=== PATIENT | male | born 1975 | race Caucasian/White ===

== ENCOUNTER 2020-10-15 10:28 | Outpatient (CLI) | payer OTHER, SELFPAY ==
--- NOTE | ~2020-10-15 | US_ITS ---
US abdomen complete DATE: 10/15/2020 11:00 INDICATION: Left upper quadrant abdominal pain TECHNIQUE: Real-time imaging and Doppler analysis of the abdominal structures COMPARISON: None FINDINGS: Examination is limited due to body habitus. The pancreas is obscured by bowel gas. The abdo kim aorta and inferior vena cava likewise are obscured by bowel gas. There is hepatic steatosis. Normal hepatopedal portal venous flow direction. The gallbladder is contracted and not optimally evaluated. Negative sonographic Cordon's sign. The co mmon bile duct measures 6.1 mm, borderline. Left kidney measures 11.7 cm length, right kidney 12.2 cm length. No renal mass lesion or hydronephro sis is detected. Splenic size is normal. IMPRESSION: Limited evaluation; pancreas and abdominal aorta are obscured. The gallbladder is contrac roger and not optimally examined. Reviewed, dictated and finalized at [facility]. Reviewed, dictated and finalized at [facility]. IMPRESSION: Limited evaluation; pancreas and abdominal aorta are obscured. The gallbladder is contracted and not optimally examined.
== END 2020-10-15 10:29 | disposition home or self-care (01) ==
PROVIDERS: PCP Family Medicine; Visit Provider Nurse Practitioner Family
DX: R10.12 Left upper quadrant pain (principal)
CPT/HCPCS: 76700

== ENCOUNTER 2021-06-22 08:22 | Outpatient (RCR) | payer OTHER, SELFPAY ==
[2021-06-22 13:45] VITALS: BP 138/90; PULSE 87; RESP 20; TEMP 36.2; O2SAT 96
[2021-06-22] MEDS: diphenhydrAMINE HCl CAP 25 MG CAPSULE PO (13:48)
[2021-06-22] MEDS: FAMOTIDINE 20 MG TABLET PO (13:48)
[2021-06-22] MEDS: ACETAMINOPHEN 325 MG TABLET 650 MG PO (13:49)
[2021-06-22 15:20] VITALS: BP 128/91
--- NOTE | 2021-06-23 10:50 | PC.NURSE ---
Unable to reach patient on the phone, left message for patient to call wit any questions or concerns.
== END 2021-06-22 17:00 ==
LOC: AMCINF 08:22
PROVIDERS: PCP Physician Assistant; Visit Provider Internal Medicine Hematology & Oncology
DX: U07.1 COVID-19 (principal); I10 Essential (primary) hypertension
CPT/HCPCS: A9270; M0245; Q0245

== ENCOUNTER 2025-01-15 08:47 | Outpatient (CLI) | payer OTHER, SELFPAY ==
--- NOTE | ~2025-01-15 | CT_ITS ---
CLINICAL INDICATION: Nicotine dependence COMPARISON: None. TECHNIQUE: Multiple contiguous axial images of the chest was performed without the administration of intravenous contrast. This CT examination was performed utilizing dose reduction techniques. DLP: 405 mGy-cm FINDINGS/OBSERVATIONS: LUNG:Cylindrical bronchiectasis is identified. The lungs are otherwise clear. HEART: The heart is of normal size, without pericardial effusion. MEDIASTINUM: No pathologically enlarged or morphologically suspicious lymph nodes are identified within the medias tinum, bilateral axilla, within the soft tissues of the anterior chest wall. SOFT TISSUES OF THE CHEST: Unremarkable. BONES OF THE CHEST: No acute fracture. No lytic or blastic lesions are identified. IMPRESSION: Lung-RADS category 1: Negative. Continue annual screening with noncontrast low-dose chest CT in 12 mo nths. Reviewed, dictated and finalized at [facility]. IMPRESSION: Lung-RADS category 1: Negative. Continue annual screening with noncontrast low- dose chest CT in 12 months.
--- NOTE | ~2025-01-15 | US_ITS ---
US abdomen limited INDICATION: Cholesterolosis of the gallbladder PROCEDURE: Realtime right upper abdominal ultrasound. COMPARISON: Ultrasound dated 10/15/2020 FINDINGS: The pancreas is normal without focal mass or pancreatic ductal dilation. Liver echotexture is increased, consistent with fatty infiltration. There is normal directional flow in the portal ve in. Gallbladder contains multiple echogenic foci without posterior shadowing or mobility, consistent with gallbladder polyps. Largest measures approximately 4 mm. Common bile duct measures mm. No sonograp hic Cordon's sign. IMPRESSION: 1: Gallbladder polyps. 2: Fatty infiltration of the liver. Reviewed, dictated and finalized at [facility].
== END 2025-01-15 08:48 | disposition home or self-care (01) ==
LOC: MICIMG 08:48
PROVIDERS: PCP Family Medicine; Visit Provider Physician Assistant
DX: Z12.2 Encounter for screening for malignant neoplasm of respiratory organs (principal); Z87.891 Personal history of nicotine dependence; K82.4 Cholesterolosis of gallbladder; K76.0 Fatty (change of) liver, not elsewhere classified
CPT/HCPCS: 71271; 76705